=== PATIENT | female | born 1965 | race Caucasian/White ===

== ENCOUNTER → 2020-05-25 | Outpatient (CLI) | payer BC | LOC: MRI 14:04 | PROVIDERS: ATTEND Family Medicine | DX: M51.25 Other intervertebral disc displacement, thoracolumbar region (principal); M48.061 Spinal stenosis, lumbar region without neurogenic claudication; M47.816 Spondylosis without myelopathy or radiculopathy, lumbar region ==

== ENCOUNTER → 2020-06-12 | Outpatient (CLI) | payer BC ==
[~2020-06-12] VITALS: Ht 157.5 cm; Wt 72.6 kg
[~2020-06-12] MED LIST: CELEBREX 200 M200 M1 PO; LISINOPRIL-HCT1 EACH PO; OMEPRAZOLE 20 M20 M1 PO
[2020-06-12 12:58] VITALS: BP 121/69
--- NOTE | 2020-06-12 13:10 | NUR ---
Pain Clinic Assessment: 1. History of Osteoarthritis: NONE History of Rheumatoid Arthritis: NONE 2. Height: 5 ft. 2 in. 157.5 cm. Weight: 160.0 lb. oz. 72.576 kg. Patient's BMI: 29.3 3. Vital Signs: BP: 121/69 Pulse: 74 Resp: 14 Temp: 02 Sat: 100 ECG Mon: 4. Pain Intensity: 2 5. Fall Risk: Dizziness: N Needs help standing or walking: N Fallen in the last 3 months: N Fall risk comments: 6. Patient on Blood Thinner: None 7. History of Hypertension: Y 8. Opioid Therapy greater than 6 weeks: N Opiate Contract Signed: 9. Risk Assessment Tool Provided: 0-low 10. Functional Assessment Tool: 11. Recreational Drug Use: Never Drug Type: Tobacco Use: Never Smoker Tobacco Type: Amount or Packs/day: How Many Years: Alcohol Use: No Frequency: Quant:
--- NOTE | 2020-06-19 10:15 | HPC ---
[facility] [address] [address] PAIN MANAGEMENT CONSULTATION Name: JESSICA ESPOSITO Room #: REG BALDOMERO HugoMariamHenrique.#: [id number] Admission: 06/12/20 Attend Phys: Vini Jean Baptiste DO Discharge: Date of : 63 Report #: [id number] THIS REPORT FOR: cc: Vini Nair James A. DO Johnson, James E. DO ~ DATE OF SERVICE: 06/12/2020 CARDIOLOGY CONSULTATION REFERRING PHYSICIAN: Vini Nair DO CHIEF COMPLAINT: Axial back pain, intermittent right lower extremity pain. HISTORY OF PRESENT ILLNESS: As you know, the patient is a pleasant 54-year-old female with longstanding history of low back pain, intermittent right buttock and posterolateral thigh pain. She places her current pain at about 2/10. She indicates pain began about 3 years ago without inciting injury or trauma. She has been dealing with the symptoms on and off for years, trying conservative medical therapy and rest and relaxation. She continues to experience symptoms that she felt were becoming more problematic on a daily basis. She sought evaluation through her primary care physician who referred the patient now for imaging. The imaging showed arthritic changes of the lumbar spine, typical for a 54-year-old female and she was subsequently referred to our clinic. The patient indicates the pain is periodic. She describes the pain as aching, stabbing and tender. She places current pain score 2/10, daily average up to 5-6/10, worst pain is 9/10. The patient states that walking and standing exacerbate symptoms, sitting and resting, tends to improve pain, which is consistent with osteoarthritic changes of the facet joints of the lumbar region. She has been referred to our service to discuss treatment options for this issue. PAST MEDICAL HISTORY: 1. Hypertension. 2. Gastroesophageal reflux disease. PAST SURGICAL HISTORY: 1. Appendectomy. 2. section. 3. Total knee arthroplasty. SOCIAL HISTORY: The patient denies tobacco, alcohol, IV or illicit drug use. 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 She is working, not receiving workmen's compensation nor is trying to obtain disability benefits. She is unaccompanied [facility] [address] [place] [address] PAIN MANAGEMENT CONSULTATION Name: JESSICA ESPOSITO Room #: REG [facility].#: [id number] Admission: 06/12/20 Attend Phys: Vini Jean Baptiste DO Discharge: Date of : 63 Report #: [id number] at today's visit. REVIEW OF SYSTEMS: Positive for wearing corrective eyewear, numbness and tingling sensations, varicose veins, chronic low back pain, gastroesophageal reflux disease and hypertension. All other review of systems negative per 12-point review of systems other than those listed in history of present illness. Pain impact score 15 of 70 indicating mild interference of daily activities secondary to pain. ALLERGIES: SULFA and ERYTHROMYCIN. CURRENT MEDICATIONS: Celecoxib 200 mg once a day, omeprazole 20 mg once a day, lisinopril/hydrochlorothiazide 10/12.5 mg once a day. IMAGING: MRI of lumbar spine shows 6 lumbar type vertebrae. There are degenerative changes at multiple levels that is mild in nature, mild disk bulging. No disk protrusion or subluxation. Mild central canal stenosis, most prominent at the L5-L6 level secondary to disk bulge and mild anterolisthesis. Mild neural foraminal narrowing. PHYSICAL EXAMINATION: VITAL SIGNS: Blood pressure 121/69, pulse 74, respiratory rate 14 and unlabored. The patient is 100% on room air. Height 5 feet 2 inches tall, weight 160 pounds. BMI calculated 29.3. GENERAL: Well-developed, well-nourished, well-hydrated 54-year-old female appearing stated age. Pain is rated today 2/10. HEENT: Normocephalic, atraumatic. Pupils equal, round and reactive. NEUROLOGIC: Speech is fluent. The patient deemed a good historian. LUNGS: Clear. No wheeze, rhonchi or rales. CARDIOVASCULAR: Regular. No appreciable gallop, no rub. ABDOMEN: Soft, mildly obese, normoactive bowel sounds. EXTREMITIES: Show no clubbing, no cyanosis and no edema. MUSCULOSKELETAL: Lower extremity strength appears equal and symmetrical 5/5, intact to light touch from L1 through S2 dermatomes. Seated straight leg raising negative. Supine straight leg raising negative. Gigi's test is negative. Modified Gaenslen's positive for axial low back pain. Ankle clonus negative. Babinski is negative. Lumbar provocation testing is met with slightly increase in pain, but no significant restriction of motion. ASSESSMENT: 1. Lumbosacral spondylosis without radiculopathy. 2. Facet arthropathy of the lumbar spine. 3. Chronic intractable pain. [facility] [address] [place] [address] PAIN MANAGEMENT CONSULTATION Name: JESSICA ESPOSITO Room #: REG BALDOMERO Ribera#: [id number] Admission: 06/12/20 Attend Phys: Vini Jean Baptiste DO Discharge: Date of : 63 Report #: [id number] PLAN: 1. Based on today's physical exam and history the patient has provided, the description the patient uses in regards to pain as well as location of symptoms, likely source of the patient's pain is the facet joints of the lumbar region. 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 The patient does have a mild spondylolisthesis of L5 on L6, which is the likely source of the patient's current symptoms. The fact that the patient experiences pain while standing and walking, it is consistent with facet arthropathy. We discussed with the patient treatment options based on the findings of the physical exam and the MRI imaging, which shows typical age-related osteoarthritic changes. The following was discussed with the patient for treatment options. We discussed physical therapy, stretching exercises, core strengthening and concerted effort at weight loss, which is the gold-standard treatment for facet arthropathy pain. We discussed medication management utilizing a gastrointestinal safe nonsteroidal anti-inflammatory in conjunction with strengthening exercises. We discussed interventional treatments, which include intra-articular facet injections, medial branch nerve block and radiofrequency lesioning to provide transient improvement in symptoms. We also discussed surgical options, though at this point, the patient is not a surgical candidate. After reviewing the risks and benefits of all proposed treatment options, the patient chose to begin with conservative treatment. 2. The patient was provided a prescription for celecoxib 200 mg dose. She can take this twice a day. She will watch for dyspepsia, worsening of blood pressure, lower extremity edema with use of medication. I have given the patient #60 tablets with no refills. The patient will increase her dose from once a day to twice a day in hopes of gaining better analgesic benefit. Prescription was provided to the patient in written form today. 3. The patient has been advised to begin stretching exercises and core strengthening techniques as well as monitoring weight. If the patient is able to participate in his daily activities, I believe her core strengthening will improve her overall symptoms and any weight loss that she can obtain would be quite beneficial for the patient from a longstanding osteoarthritic standpoint. She will begin changes in her diet and exercise program as tolerated. 4. At this point, interventional treatments are not necessary. We did discuss them at length today. She wishes to use a more conservative approach initially. We will plan to see her back in followup visit on an as needed basis. If she is doing well with the celecoxib twice a day, she can follow up with her PCP to continue this therapy. We will be available to see her back in followup visit for interventional therapies if necessary. 5. We wish to thank Dr. Nair for the opportunity to see the patient in consultation. We will keep you apprised of her response to treatment if she does return for any adjustments in therapy or interventional treatment options. [address] [address] PAIN MANAGEMENT CONSULTATION Name: JESSICA ESPOSITO Room #: REG CLI Henrique.#: [id number] Admission: 06/12/20 Attend Phys: Vini Jean Baptiste DO Discharge: Date of : 63 Report #: [id number] Again, we wish to thank you for the opportunity to see the patient in consultation. <ELECTRONICALLY SIGNED> By: Vini Jean Baptiste DO 06/19/20 [id number] Vini Jean Baptiste DO /vira
== END ==
LOC: PAIN 06:53
PROVIDERS: ATTEND Anesthesiology Pain Medicine
DX: G89.29 Other chronic pain (principal); M47.817 Spondylosis without myelopathy or radiculopathy, lumbosacral region; M46.86 Other specified inflammatory spondylopathies, lumbar region; I10 Essential (primary) hypertension; K21.9 Gastro-esophageal reflux disease without esophagitis; Z88.8 Allergy status to other drugs, medicaments and biological substances; Z90.49 Acquired absence of other specified parts of digestive tract; Z68.29 Body mass index [BMI] 29.0-29.9, adult; Z96.659 Presence of unspecified artificial knee joint; Z79.899 Other long term (current) drug therapy

== ENCOUNTER → 2020-06-26 | Outpatient (CLI) | payer BC ==
[~2020-06-26] VITALS: Ht 157.5 cm; Wt 83.8 kg
--- NOTE | ~2020-06-26 | HPC ---
[facility] [place] [address] PAIN MANAGEMENT CONSULTATION Name: JESSICA ESPOSITO Room #: REG BALDOMERO Wilner.#: [id number] Admission: 06/26/20 Attend Phys: Vini Jean Baptiste DO Discharge: Date of : 63 Report #: [id number] THIS REPORT FOR: cc: Vini Nair James A. DO Johnson, James E. DO ~ CC: Vini Del Real DATE OF SERVICE: 06/26/2020 CHIEF COMPLAINT: Axial back pain, right lower extremity pain with paresthesias. HISTORY OF PRESENT ILLNESS: As you know, the patient is a very pleasant 54-year-old female with longstanding history of low back pain, intermittent right buttock and posterolateral thigh pain, seen in consultation per the request of her primary care physician, Dr. Vini Nair on 06/12/2020. At that time, it appears the majority of her symptoms are related to facet arthropathy. Over the past couple of weeks, she has begun to experience increasing right lower extremity pain with paresthesias consistent with her chronic lumbar radiculopathy. She returns today in followup visit to discuss treatment options to address the right lower extremity symptoms and her chronic low back pain. She denies new injury or trauma that may have led to symptom distribution changes and increasing symptoms of pain. ALLERGIES: SULFA, ERYTHROMYCIN. CURRENT MEDICATIONS: Celecoxib 200 mg twice a day, omeprazole 20 mg once a day, lisinopril/hydrochlorothiazide 10/12.5 mg once a day. SOCIAL HISTORY: The patient denies tobacco, alcohol, IV or illicit drug use. 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 She is accompanied by her , present in room today. IMAGING: No new imaging available. PHYSICAL EXAMINATION: VITAL SIGNS: Blood pressure 102/78, pulse 85, respiratory rate 16 and unlabored. The patient is 100% on room air. Height 5 feet 2 inches tall, weight 184.8 pounds, BMI calculated 33.8. GENERAL: Well-developed, well-nourished, well-hydrated 54-year-old female appearing stated age. Pain is rated today at 3-4/10. HEENT: Normocephalic, atraumatic. Pupils equal, round and reactive. The patient is wearing a mask in compliance with COVID-19 restrictions. EXTREMITIES: Show no clubbing, no cyanosis, no edema. [address] [address] PAIN MANAGEMENT CONSULTATION Name: JESSICA ESPOSITO [id number] Admission: 06/26/20 Attend Phys: Vini Jean Baptiste DO Discharge: Date of : 63 Report #: [id number] MUSCULOSKELETAL: Lower extremity strength remains symmetrical again today 5/5. Seated straight leg raising negative. Supine straight leg equivocal on the right, negative left. Gigi's test is negative. Modified Gaenslen's positive for axial low back pain. ASSESSMENT: 1. Symptomatic lumbar radiculopathy. 2. Lumbosacral spondylosis with radiculopathy. 3. Facet arthropathy of the lumbar spine. 4. Chronic intractable pain. PLAN: 1. The patient returns today in followup visit having increasing right lower extremity pain consistent with her chronic lumbar radiculopathy. The patient has suffered from lumbar radicular symptoms in the past and this began to recur without inciting injury or trauma, just recently. She has made today's appointment to discuss intra-articular facet injections, but she is experiencing increasing pain in a radicular fashion, radiating down the right leg that is more problematic for her. She has requested a lumbar epidural injection under fluoroscopic guidance. We have described to the patient the risks and benefits of a lumbar epidural injection. These risks include but are not necessarily limited to; bleeding, bruising, infection, worsening of pain, no relief of pain, temporary or permanent muscle weakness, temporary or permanent nerve damage, possible paralysis and . The patient states understood and wished to proceed. 2. No medication changes made at today's visit. The patient will continue current medical therapy as prior prescribed. 3. We will see the patient back in followup visit for possible next in the series of lumbar epidural injections. We are hopeful the patient will see good and prolonged benefit with today's procedure. DESCRIPTION OF PROCEDURE: L5-S1 right paramedian epidural steroid injection under fluoroscopic guidance. This is the first procedure of the first series that the patient is undergoing. After obtaining written consent, the patient was taken back to the fluoroscopy suite, placed in a prone position with pillow under the abdomen to decrease lumbar lordosis. The skin overlying the lumbosacral area was then prepped and draped in aseptic fashion. The L5-S1 vertebral interspace was then identified by AP fluoroscopy. The skin and subcutaneous tissue overlying the target site of injection was anesthetized with 3 mL 1% lidocaine. A 20-gauge 3-1/2 inch Tuohy needle was then advanced under fluoroscopic guidance towards the epidural space using a right paramedian approach. The epidural space was identified using loss of resistance to air technique. After negative [address] [address] PAIN MANAGEMENT CONSULTATION Name: JESSICA ESPOSITO Room #: REG BALDOMERO Ribera#: [id number] Admission: 06/26/20 Attend Phys: Vini Jean Baptiste DO Discharge: Date of : 63 Report #: [id number] aspiration for heme or cerebrospinal fluid, a total of 1 mL of Omnipaque was injected. A lumbar epidurogram was confirmed using both AP and lateral fluoroscopy. After negative aspiration for heme or cerebrospinal fluid, 5 mL of a solution containing 2 mL 40 mg per mL, 80 mg total triamcinolone along with 3 mL of lidocaine 1% was injected in increments. Contrast spread was noted at posterior epidural space. The needle was then retracted approximately half way and needle tract flushed with 1 mL of 1% lidocaine. Needle was then removed. There were 12 no apparent sensory or motor deficits in the lower extremity following the procedure. A sterile bandage was placed over the injection site. The heart rate, pulse, oximetry and blood pressure were continuously monitored after the procedure. There were no apparent complications. The patient tolerated the procedure well and was carefully escorted to the recovery room in stable condition. There were no apparent complications. After meeting discharge criteria, the patient was then discharged home. By: [id number] Vini Jean Baptiste DO /nt
[2020-06-26 14:04] VITALS: BP 102/78
--- NOTE | 2020-06-26 14:12 | NUR ---
Pain Clinic Assessment: 1. History of Osteoarthritis: NONE History of Rheumatoid Arthritis: NONE 2. Height: 5 ft. 2 in. 157.5 cm. Weight: 184.8 lb. oz. 83.825 kg. Patient's BMI: 33.8 3. Vital Signs: BP: 102/78 Pulse: 85 Resp: 16 Temp: 02 Sat: 100 ECG Mon: 4. Pain Intensity: 3-4 5. Fall Risk: Dizziness: N Needs help standing or walking: N Fallen in the last 3 months: N Fall risk comments: 6. Patient on Blood Thinner: None 7. History of Hypertension: Y 8. Opioid Therapy greater than 6 weeks: N Opiate Contract Signed: 9. Risk Assessment Tool Provided: 0-low 10. Functional Assessment Tool: 11. Recreational Drug Use: Never Drug Type: Tobacco Use: Never Smoker Tobacco Type: Amount or Packs/day: How Many Years: Alcohol Use: No Frequency: Quant:
== END ==
LOC: PAIN 06:58
PROVIDERS: ATTEND Anesthesiology Pain Medicine
DX: M47.27 Other spondylosis with radiculopathy, lumbosacral region (principal); G89.29 Other chronic pain; M54.5 Low back pain; M12.88 Other specific arthropathies, not elsewhere classified, other specified site; Z88.1 Allergy status to other antibiotic agents; Z88.2 Allergy status to sulfonamides; Z79.899 Other long term (current) drug therapy

== ENCOUNTER 2020-07-24 08:22 | Emergency (ER) | payer BC ==
[~2020-07-24] VITALS: Ht 157.5 cm; Wt 72.6 kg
[2020-07-24 08:40] LABS: URINE BILIRUBIN NEGATIVE (Negative); URINE BLOOD 3+ (Negative); URINE CLARITY CLOUDY; URINE COLOR PINK; URINE GLUCOSE-RANDOM* NEGATIVE (Negative); URINE KETONES NEGATIVE (Negative); URINE LEUKOCYTES-REFLEX 2+ (Negative); URINE NITRITE-REFLEX NEGATIVE (Negative); URINE PROTEIN (DIPSTICK) 1+ (Negative); URINE SPECIFIC GRAVITY <= 1.005 (1.005-1.035); URINE UROBILINOGEN 0.2 E.U./dl (0.2-1.0)
[2020-07-24 08:51] LABS: CASTS None Seen /LPF (None Seen); MUCUS 0-3 Light strn/LPF (None Seen); SQUAMOUS 0-3 Few /LPF (0-3)
[2020-07-24 08:52] LABS: BACTERIA-REFLEX None Seen /HPF (None Seen); CRYSTALS None Seen /LPF (None Seen); URINE RBC >20 Many /HPF (0-2); URINE WBC-REFLEX 0-5 Rare /HPF (0-5)
[2020-07-24 09:11] LABS: ABSOLUTE NEUTROPHILS 6.5 thou/uL (1.4-8.2); BASOPHILS 0.5 % (0.0-2.0); EOSINOPHILS 1.8 % (0.0-3.0); HEMATOCRIT 40.7 % (37.0-47.0); HEMOGLOBIN 13.8 gm/dL (12.0-15.0); LYMPHOCYTES 22.7 % (24.0-44.0); MCH 31.1 pg (26.0-34.0); MCHC 33.8 g/dL (28.0-37.0); MCV 92.1 fL (80.0-100.0); MONOCYTES 5.2 % (1.0-8.0); POLYS 69.8 % (36.0-66.0); RBC 4.42 mil/uL (4.20-5.00); RDW 13.4 % (10.5-14.5); WBC 9.3 thou/uL (4.0-11.0)
[2020-07-24 09:22] LABS: CALCIUM 8.7 mg/dL (8.5-10.1); CREATININE 0.9 mg/dL (0.6-1.0); POTASSIUM 3.5 mmol/L (3.5-5.1)
[2020-07-24 09:25] LABS: PLATELET COUNT 160 thou/uL (150-400)
[2020-07-24 10:02] VITALS: BP 147/95
== END 2020-07-24 10:03 | disposition home or self-care (01) ==
LOC: ER 08:22
PROVIDERS: Emergency Medicine
DX: N93.9 Abnormal uterine and vaginal bleeding, unspecified (principal); Z79.899 Other long term (current) drug therapy; Z88.1 Allergy status to other antibiotic agents; Z88.2 Allergy status to sulfonamides